=== PATIENT | male | born 1965 | race Caucasian/White ===

== ENCOUNTER 2025-06-06 06:33 | Day surgery (SDC) | payer BC ==
[2025-06-02 08:59] VITALS: BMI 26.0
[2025-06-06] MEDS ORDERED: SUCCINYLCHOLINE/SOD CL,ISO/PF 200 MG/10 ML SYRINGE FS ONE (07:26)
[2025-06-06] MEDS ORDERED: Lidocaine 1% PF 5 ML VIAL ONE (07:26)
[2025-06-06] MEDS ORDERED: fentaNYL PF 100 MCG/2 ML SYRINGE ONE ×2 (07:26→10:11)
[2025-06-06] MEDS ORDERED: PROPOFOL 20 ML ONE (07:26)
[2025-06-06] MEDS ORDERED: Ondansetron PF 4 MG/2 ML Vial ONE (07:27)
[2025-06-06] MEDS ORDERED: Rocuronium Bromide 10 MG/ML (10ML VIAL) ONE (07:28)
[2025-06-06] MEDS ORDERED: CEFAZOLIN 2 GM VIAL ONE ×2 (07:53→12:02)
[2025-06-06] MEDS ORDERED: HYDROmorphone 2 MG/ML VIAL ONE (08:58)
[2025-06-06] MEDS ORDERED: Glycopyrrolate 0.2 MG/ML 5 ML SYRINGE ONE (09:31)
[2025-06-06] MEDS ORDERED: NEOSTIGMINE 3 MG/3 ML SYRINGE ONE (09:31)
[2025-06-06] MEDS ORDERED: HYDROmorphone 0.5 MG/0.5 ML SYRINGE ONE (10:00)
[2025-06-06] MEDS ORDERED: Cyclobenzaprine 10 MG TAB ONE (11:16)
[2025-06-06] MEDS ORDERED: HYDROcodone/Acetaminophen 5/325 mg Tablet ONE (11:47)
== END 2025-06-06 13:16 | disposition home or self-care (01) ==
LOC: SDC 06:33
PROVIDERS: ATTEND Neurological Surgery
PROC: 0RG20A0 Fusion of 2 or more Cervical Vertebral Joints with Interbody Fusion Device, Anterior Approach, Anterior Column, Open Approach (ICD-10-PCS; principal; 2025-06-06)
DX: M54.12 Radiculopathy, cervical region (principal); M48.02 Spinal stenosis, cervical region; E11.9 Type 2 diabetes mellitus without complications; K21.9 Gastro-esophageal reflux disease without esophagitis; Z87.891 Personal history of nicotine dependence; Z79.84 Long term (current) use of oral hypoglycemic drugs; Z79.899 Other long term (current) drug therapy
CPT/HCPCS: C1713; C1889; J1100; J1171; J2250; J2405; J2704; J3010